=== PATIENT | female | born 1955 ===

== ENCOUNTER 2018-01-05 05:16 | Day surgery (SDC) | payer OTHER ==
[~2018-01-05 05:16] MED LIST: ATENOLOL50 MG PO; CLONAZEPAM2 MG PO; LISINOPRIL-HCT1 EAC1 PO; RESTORIL30 M1 PO
== END 2018-01-05 13:40 | disposition home or self-care (01) ==
LOC: CIR.AMB 05:16
DX: N84.0 Polyp of corpus uteri (principal)